=== PATIENT | male | born 1940 | race Caucasian/White ===

== ENCOUNTER 2017-01-15 15:16 | Emergency (ER) | payer MEDICARE, BC ==
[~2017-01-15] VITALS: Ht 182.8 cm; Wt 113.4 kg
[2017-01-15 15:53] LABS: BILIRUBIN NEGATIVE (NEGATIVE); BLOOD 2+ (NEGATIVE); CLARITY SL CLOUDY (CLEAR); COLOR YELLOW (YELLOW); GLUCOSE NEGATIVE (NEGATIVE); KETONE NEGATIVE (NEGATIVE); LEUKO ESTERASE 2+ (NEGATIVE); NITRITE NEGATIVE (NEGATIVE); SPECIFIC GRAVITY 1.025 (1.005-1.030); UROBILINOGEN 0.2 E.U./dl (0.2-1.0)
[2017-01-15 16:07] LABS: BACTERIA 2+; WBC 21-30 wbc/hpf (0-5)
[2017-01-15] MEDS ORDERED: PYRIDIUM200 M1 PO (16:15)
[2017-01-15] MEDS ORDERED: SEPTDS PO (16:15)
== END 2017-01-15 16:03 | disposition home or self-care (01) ==
LOC: ED 15:16
PROVIDERS: Physician Assistant
DX: N39.0 Urinary tract infection, site not specified (principal)